=== PATIENT | male | born 1995 | race Two or more races ===

== ENCOUNTER 2021-05-14 08:21 | Emergency (ER) | payer MEDICAID ==
[~2021-05-14] VITALS: Ht 170.2 cm; Wt 74.8 kg
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
[2021-05-14] MEDS ORDERED: IBUPROFEN 600 MG TABLET PO ONE (08:30)
[2021-05-14] MEDS ORDERED: HYDROCODONE/APAP 5/325MG TABLET PO ONE (08:30)
[2021-05-14] MEDS ORDERED: IBUPROFEN 600 MG TABLET ONE (08:34)
[2021-05-14] MEDS ORDERED: HYDROCODONE/APAP 5/325MG TABLET ONE (08:34)
--- NOTE | 2021-05-14 08:35 | NUR ---
PERSONAL LOAN SPECIALIST AT BEDSIDE
[2021-05-14] MEDS ORDERED: IBUP-1955 PO (09:17)
[2021-05-14] MEDS ORDERED: HYDR-3972 PO (09:17)
[2021-05-14 10:00] VITALS: BP 128/70
== END 2021-05-14 10:01 | disposition home or self-care (01) ==
LOC: ER 08:28
DX: S92.322A Displaced fracture of second metatarsal bone, left foot, initial encounter for closed fracture (principal); S20.221A Contusion of right back wall of thorax, initial encounter; S20.311A Abrasion of right front wall of thorax, initial encounter; W18.39XA Other fall on same level, initial encounter; Y93.01 Activity, walking, marching and hiking; Y92.89 Other specified places as the place of occurrence of the external cause; Y99.8 Other external cause status
CPT/HCPCS: 71100-TC; 73630-TC